=== PATIENT | female | born 1960 | race African-American/Black ===

== ENCOUNTER 2017-05-25 12:17 | Outpatient (CLI) | payer OTHER ==
--- NOTE | 2017-05-25 13:25 | ULT ---
THYROID SONOGRAM: HISTORY: Thyroid nodule. FINDINGS: Right thyroid lobe is 4.7 cm with a heterogeneous echotexture. Multiple heterogeneous nodules are pr esent, measuring up to 3.8 cm. Isthmus is 0.3 cm. Left thyroid lobe is 4.0 cm with heterogeneous echotexture and multiple heterogeneous nodules measuri ng up to 3.8 cm. IMPRESSION: Multinodular goiter. POS: PRISCILLA
== END 2017-05-25 12:18 | disposition home or self-care (01) ==
LOC: NAV ULT 12:17
PROVIDERS: ATTEND Family Medicine
DX: E01.0 Iodine-deficiency related diffuse (endemic) goiter (principal)
CPT/HCPCS: 76536